=== PATIENT | female | born 1950 | race Caucasian/White ===

== ENCOUNTER 2020-02-18 14:31 | Outpatient (CLI) | payer MEDICARE, OTHER, SELFPAY ==
[2020-02-18 15:07] LABS: Alanine Aminotransferase 18 U/L (4-35); Aspartate Amino Transferase 25 U/L (14-36)
== END 2020-02-18 14:32 | disposition home or self-care (01) ==
PROVIDERS: Visit Provider Podiatrist Foot & Ankle Surgery
DX: B35.1 Tinea unguium (principal)
CPT/HCPCS: 36415; 84450; 84460

== ENCOUNTER 2020-05-20 09:34 | Outpatient (CLI) | payer MEDICARE, OTHER, SELFPAY ==
[2020-05-20 10:33] LABS: Alanine Aminotransferase 16 U/L (4-35); Aspartate Amino Transferase 28 U/L (14-36)
== END 2020-05-20 09:35 | disposition home or self-care (01) ==
LOC: ANHLAB 09:38
PROVIDERS: Visit Provider Podiatrist Foot & Ankle Surgery
DX: B35.1 Tinea unguium (principal)
CPT/HCPCS: 36415; 84450; 84460

== ENCOUNTER 2020-12-27 07:50 | Inpatient (IN) | payer MEDICARE, OTHER, SELFPAY ==
[2020-12-27] VITALS (10 sets, daily range): BP systolic 109–145; BP diastolic 58–77; PULSE 63–82; RESP 17–19; TEMP 36.3–36.6; O2SAT 98–100; BMI 25.6; BMI 25.9
[2020-12-27 08:11] LABS: Basophils Absolute Auto 0.1 K/mm3 (0.0-0.1); Basophils Percent Auto 0.6 % (0.2-1.2); Eosinophils Absolute Auto 0.3 K/mm3 (0-0.3); Eosinophils Percent Auto 2.8 % (0-4.4); Immature Granulocyte Absolute 0.05 K/mm3 (0.00-0.031); Immature Granulocyte Percent A 0.5 % (0-0.5); Lymphocytes Absolute Auto 2.77 K/mm3 (0.9-3.2); Lymphocytes Percent Auto 26.3 % (18.3-44.2); Mean Corpuscular HGB Conc 31.6 g/dl (32-36); Mean Corpuscular Hemoglobin 29.6 pg (26-34); Mean Corpuscular Volume 93.6 fl (80-100); Mean Platelet Volume 9.4 fl (7.4-10.4); Monocytes Absolute Auto 0.8 K/mm3 (0.1-0.6); Monocytes Percent Auto 7.9 % (2.6-8.5); Neutrophils Absolute Auto 6.5 K/mm3 (1.3-6.7); Neutrophils Percent Auto 61.9 % (45.5-73.1); Platelet Count Result 390 k/mm3 (150-375); Red Blood Count 4.06 M/mm3 (4.2-5.4); Red Cell Distribution Width 12.5 % (11.5-14.5); White Blood Count 10.6 K/mm3 (4.5-10.0)
--- NOTE | 2020-12-27 08:30 | ED.GIBLEED ---
HPI - GI Bleed General Chief complaint: GI Bleed Stated complaint: gi bleed Time Seen by Provider: 12/27/20 08:06 Source: patient and RN notes reviewed Mode of arrival: ambulatory Limitations: no limitations History of Present Illness HPI Narrative: Patient drove herself to the emergency room, complaining of fresh red bright blood per rectum over the last 24 hours, patient had at least 20 bowel movements since yesterday morning. No history of GI bleed before. Currently patient denying any symptom except abdominal bloating and urge to go to the bathroom. History of hypertension, hyperlipidemia, hysterectomy, currently patient on baby aspirin once a day. Patient does not smoke or drink or uses drugs. Patient is fully vaccinated for COVID-19. Patient is full code` Related Data Allergies Allergy/AdvReac Type Severity Reaction Status Date / Time No Known Allergies Allergy Unverified 12/27/20 07:58 Review of Systems Review of Systems: CONSTITUTIONAL: Denies fever, chills, or sweats. EYES: Denies visual changes, redness, or discharge. ENT: Denies rhinorrhea, congestion, sore throat, or otalgia. CARDIOVASCULAR: Denies chest pain, palpitations, or edema. RESPIRATORY: Denies cough or dyspnea. GASTROINTESTINAL: Denies abdominal pain, nausea, vomiting, or diarrhea. GENITOURINARY: Denies dysuria or hematuria. SKIN: Denies rash or itching. MUSCULOSKELETAL: Denies back pain, joint pain, or myalgia. NEUROLOGIC: Denies headache, numbness, or weakness. PSYCHIATRIC: Denies anxiety or depression. Exam Narrative: General appearance: Well-developed, well-nourished Skin: Normal color Head: Normocephalic, nontraumatic Eyes: Clear conjunctiva ENT: Oropharynx normal, ears normal, nose normal Neck: Supple, nontender Chest and respiratory: Airway patent, no respiratory distress, no accessory muscle use Heart: Regular rate/rhythm Abdomen: Soft, nontender, no organomegaly, quiet bowel sounds, rectal exam showed dark red blood, guaiac positive, no stool in the rectal pouch. No hemorrhoids, no anal pain Vascular: Normal peripheral pulses, normal capillary refill. Musculoskeletal: Normal range of motion, nontender back Neurologic: Alert and oriented ?3, [employer] is normal as tested, no gross motor deficit Course Course Emergency Course: Stable Consultations Consultation #1: DR DURAN Date: 12/27/20 Time: 09:27 Vital Signs Vital signs: Vital Signs Temperature 36.3 C L 12/27/20 07:56 Pulse Rate 82 12/27/20 07:56 Respiratory Rate 18 12/27/20 07:56 Blood Pressure 145/77 H 12/27/20 07:56 Pulse Oximetry 100 12/27/20 07:56 Temperature 36.3 C L 12/27/20 07:56 Pulse Rate 69 12/27/20 08:37 Respiratory Rate 19 12/27/20 08:37 Blood Pressure 118/58 L 12/27/20 08:37 Pulse Oximetry 99 12/27/20 08:37 MDM - GI Bleed MDM Narrative Medical decision making narrative: GI bleed is my concern. Labs, type and screen, coag, IV fluid, IV Protonix ordered. Differential Diagnosis Differential diagnosis: Likely Upper gastrointestinal hemorrhage and Lower gastrointestinal hemorrhage Lab Data Result diagrams: 12/27/20 08:02 12/27/20 08:02 Labs: Lab Results 12/27/20 12/27/20 12/27/20 Range/Units 08:02 08:02 08:02 WBC 10.6 H (4.5-10.0) K/mm3 RBC 4.06 L (4.2-5.4) M/mm3 Hgb 12.0 (12.0-15.0) g/dL Hct 38.0 (37.0-47.0) % MCV 93.6 (80-100) fl MCH 29.6 (26-34) pg MCHC 31.6 L (32-36) g/dl RDW 12.5 (11.5-14.5) % Plt Count 390 H (150-375) k/mm3 MPV 9.4 (7.4-10.4) fl Immature Gran % (Auto) 0.5 (0-0.5) % Neut % (Auto) 61.9 (45.5-73.1) % Lymph % (Auto) 26.3 (18.3-44.2) %
[2020-12-27 08:37] LABS: Alanine Aminotransferase 17 U/L (4-35); Albumin Level 4.5 g/dL (3.5-5.1); Alkaline Phosphatase 69 U/L (38-126); Anion Gap 9 mmol/L (8-16); Aspartate Amino Transferase 27 U/L (14-36); Bilirubin,Total 0.8 mg/dL (0.2-1.3); Blood Urea Nitrogen 22 mg/dL (7-17); Calcium 9.7 mg/dL (8.4-10.2); Carbon Dioxide 25 mmol/L (22-30); Chloride 101 mmol/L (98-107); Estimated CRCL calculation 52 ml/min; Estimated Glomerular Filt Rate > 60; Glucose 106 mg/dL (65-110); Potassium 4.2 mmol/L (3.4-5.0); Sodium 135 mmol/L (137-145)
[2020-12-27] MEDS: PANTOPRAZOLE SODIUM IV 40 MG VIAL IV PUSH ×2 (08:37→20:27)
--- NOTE | 2020-12-27 09:08 | PC.NURSE ---
RN assisted ERP with rectal exam.
[2020-12-27 09:15] LABS: INR 0.9; Partial Thromboplastin Time 30.2 SECONDS (22.3-36.8); Prothrombin Time 12.5 Seconds (11.1-14.7)
[2020-12-27] MEDS: SODIUM CHLORIDE 0.9% IV 1,000 ML 999 ML IV CONT (09:34)
[2020-12-27 10:07] LABS: Hematocrit 31.1 % (37.0-47.0); Hemoglobin 9.8 g/dL (12.0-15.0)
--- NOTE | 2020-12-27 12:55 | PC.NURSE ---
This patient, Caitlin Sadler, was admitted to [facility] Surg Room 330-01. Patient/family oriented to hospital policies and general routines including ID bracelet, bed and alarms, visiting hours, pain management, procedures, bathroom and other care routines, personal items, smoking policy, room service/diet, and visiting hours. Information on how to activate the Rapid Response Team has been discussed. Patient/Family are encouraged to report perceived risks to care and to ask questions if they do not understand what they are told or what they should do.
--- NOTE | 2020-12-27 12:57 | WPDGICN ---
Assessment and Plan Assessment and plan (1) GI bleed: Code(s): K92.2 - Gastrointestinal hemorrhage, unspecified Status: Acute Assessment and Plan: Patient with GI bleeding appears to been active for the last 24 hours period brightness of the bloods makes lower GI bleeding more suspicious than upper GI bleeding diverticular bleeding is certainly high on the list of differential diagnosis although ulcers and other bleeding cannot be excluded. Plan is to monitor hemoglobin transfuse as necessary will begin to prep her for colonoscopy in anticipate performing this in the morning. We will cover her with IV Protonix in the interim. Clear liquid diet is advised during the interval of preparation. GI Consult Note Consult date/time: 12/27/20 12:57 HPI: Caitlin Sadler is a 70 year old female I am asked to see in consult by emergency room. Patient in usual state of health until Sunday when she began to get mid abdominal burning. She awoke Sunday morning and passed a large amount of reddish blood. She continued to have episodes of relatively bright red blood throughout the day period and evening. Today on Sunday she presented to the emergency room. Patient denies any fever. She states she feels somewhat gassy. She continues to have bowel movements every several hours. She has never had bleeding like this before. She denies any recent travel. She has had no recent change in medications. Family history is noncontributory. She states her bowel habits typically are irregular with diarrhea alternating with constipation. She reports that her is in hospice care. She does have a history of back pain for which she takes Celebrex. Review of Systems Review of Systems: All systems reviewed & are unremarkable except as noted in HPI and below Meds Home Medications and Allergies Allergies Allergy/AdvReac Type Severity Reaction Status Date / Time No Known Allergies Allergy Unverified 12/27/20 07:58 Vital Signs Vital Signs - 24 hr 12/27/20 07:56 12/27/20 08:37 12/27/20 09:34 Temperature 97.3 F L Pulse Rate 82 69 67 Respiratory Rate 18 19 18 Blood Pressure 145/77 H 118/58 L 109/67 Pulse Oximetry 100 99 100 12/27/20 10:57 12/27/20 11:55 Temperature 97.6 F Pulse Rate 69 64 Respiratory Rate 17 18 Blood Pressure 134/67 124/66 Pulse Oximetry 100 100 Exam Narrative: Physical exam reveals patient be alert. Vital signs stable. HEENT exam is unremarkable. Patient is anicteric. Lungs are clear to auscultation and percussion heart is without murmur or extra sounds. Abdominal exam bowel sounds are present soft nontender with no organomegaly. Digital external rectal exam is normal. Results Labs CBC & Chem 7: 12/27/20 09:59 12/27/20 08:02 Labs: Short CBC 12/27/20 12/27/20 Range/Units 08:02 09:59 WBC 10.6 H (4.5-10.0) K/mm3 Hgb 12.0 9.8 L (12.0-15.0) g/dL Hct 38.0 31.1 L (37.0-47.0) % Plt Count 390 H (150-375) k/mm3 BMP 12/27/20 08:02 Sodium 135 L Potassium 4.2 Chloride 101 Carbon Dioxide 25 BUN 22 H Creatinine 0.80 Glucose 106 Calcium 9.7 Liver Function 12/27/20 Range/Units 08:02 Total Bilirubin 0.8 (0.2-1.3) mg/dL AST 27 (14-36) U/L ALT 17 (4-35) U/L Alkaline Phosphatase 69 (38-126) U/L Albumin 4.5 (3.5-5.1) g/dL
[2020-12-27] MEDS: SODIUM CHLORIDE 0.45% 1,000 ML 100 ML IV CONT (13:25)
--- NOTE | 2020-12-27 13:48 | PM.IMHP ---
H&P: HPI History of Present Illness Date/Time: 12/27/20 13:48 this is a 70-year-old female patient who has a past medical history of diverticulosis and polyps. Her last colonoscopy was approximately 2 years ago in [place] and the records are not available in our system. The patient stated that she has never had a GI bleed in the past. However the patient has been taking aspirin and Celebrex. The patient presented to the emergency room after driving herself here with complaints of bright red rectal bleeding for the past 24 hours. The patient has had at least 20 bowel movements since yesterday. The patient complained of some abdominal bloating and urged to go to the restroom. The patient does not drink any alcohol and has been fully vaccinated for the COVID-19. The patient has no complaints of abdominal discomfort. GI has been consulted and has already seen the patient. Patient was placed on a clear liquid diet and will be prepped for colonoscopy for tomorrow. The patient's hemoglobin was initially 12 and is now down to 9.8. Hematocrits was initially 38 and is 31.1. However IV fluids have been started since her initial H&H. Patient has no signs and symptoms of any dizziness and her vital sign blood pressure 124/66 and heart rate in the 60s. The patient was started on IV Protonix and IV fluids. The patient is being admitted for observation status on the date of service of 12/27/2020. Chief Complaint: Bloody stool Review of Systems Review of Systems: All systems reviewed & are unremarkable except as noted in HPI and below Constitutional: Constitutional: Reports as per HPI and Reports no additional constitutional complaints Eyes: Eyes: Reports as per HPI and Reports no additional eye complaints ENT: Reports system reviewed and no additional complaints, except as documented and Reports Normal hearing present Cardiovascular: Cardiovascular: Reports no additional cardiovascular complaints Respiratory: Respiratory: Reports no additional respiratory complaints and Reports no additional respiratory complaints Gastrointestinal: Gastrointestinal: Reports as per HPI and Reports no additional gastrointestinal complaints Musculoskeletal: Musculoskeletal: Reports no additional musculoskeletal complaints Integumentary/Breasts: Skin/Breast: Reports system reviewed and no additional complaints, except as docu and Reports as per HPI Neurologic: Reports system reviewed and no additional complaints, except as documented, Reports as per HPI and Reports Normal hearing present Psychiatric: Psychiatric: Reports no additional psychiatric complaints and Reports as per HPI Endocrine: Endocrine: Reports no additional endocrine complaints Hematologic/Lymphatic: Hematologic/Lymphatic: Reports no additional hematologic/lymphatic complaints Allergic/Immunologic: Allergic/Immunologic: Reports no additional allergic/immunologic complaints [facility] Past Medical History Medical History (Updated 12/27/20 @ 14:01 by Capri Glasgow NP) Diverticulosis Hyperlipidemia Hypertension Normal colonoscopy 2018 Surgical History Surgical History (Updated 12/27/20 @ 14:01 by Capri Glasgow NP) H/O dilation and curettage X4 H/O dilation of urethra 1971 H/O rectal polypectomy H/O: hysterectomy 1990 History of appendectomy 1966 History of bilateral carpal tunnel release 1980s History of kidney surgery Attachment offloading kidney 2000 History of tonsillectomy and adenoidectomy 195 History of total bilateral knee replacement Hx of cervical spinal arthrodesis Screws and rods with cadaver fusion C4 through 7, C4 through 5, C5 through 6, C6 through 7 05/23/2007 Status post trigger finger release 07/05/2059 Family History Family History (Updated 12/27/20 @ 14:07 by Capri Glasgow NP) Father Acute myocardial infarction Mother COPD (chronic obstructive pulmonary disease) Heart disease Social History Social History (Reviewed 12/27/20 @ 0
[2020-12-27] MEDS: PEG (High)/E-LYTE SOLN 4,000 ML BTL 4000 ML PO (14:57)
[2020-12-27 17:05] LABS: Hematocrit 30.8 % (37.0-47.0); Hemoglobin 9.3 g/dL (12.0-15.0)
[2020-12-27 22:06] LABS: Hematocrit 27.2 % (37.0-47.0); Hemoglobin 8.5 g/dL (12.0-15.0)
[2020-12-28] VITALS (13 sets, daily range): BP systolic 79–140; BP diastolic 43–80; PULSE 61–90; RESP 16–24; TEMP 35.9–36.8; O2SAT 95–100
[2020-12-28] MEDS: SODIUM CHLORIDE 0.45% 1,000 ML 100 ML IV CONT (00:05)
[2020-12-28] MEDS: ONDANSETRON INJ 4 MG/2 ML VIAL IV PUSH (06:56)
[2020-12-28 06:58] LABS: Basophils Absolute Auto 0.1 K/mm3 (0.0-0.1); Basophils Percent Auto 0.6 % (0.2-1.2); Eosinophils Absolute Auto 0.2 K/mm3 (0-0.3); Hematocrit 26.1 % (37.0-47.0); Hemoglobin 8.1 g/dL (12.0-15.0); Immature Granulocyte Absolute 0.03 K/mm3 (0.00-0.031); Immature Granulocyte Percent A 0.4 % (0-0.5); Lymphocytes Absolute Auto 2.25 K/mm3 (0.9-3.2); Lymphocytes Percent Auto 27.8 % (18.3-44.2); Mean Corpuscular Hemoglobin 29.8 pg (26-34); Mean Platelet Volume 9.4 fl (7.4-10.4); Monocytes Absolute Auto 0.6 K/mm3 (0.1-0.6); Monocytes Percent Auto 7.5 % (2.6-8.5); Neutrophils Percent Auto 61.7 % (45.5-73.1); Platelet Count Result 264 k/mm3 (150-375); Red Blood Count 2.72 M/mm3 (4.2-5.4); Red Cell Distribution Width 12.7 % (11.5-14.5); White Blood Count 8.1 K/mm3 (4.5-10.0)
[2020-12-28 07:15] LABS: Alanine Aminotransferase 14 U/L (4-35); Albumin Level 3.3 g/dL (3.5-5.1); Alkaline Phosphatase 54 U/L (38-126); Anion Gap 7 mmol/L (8-16); Aspartate Amino Transferase 21 U/L (14-36); Bilirubin,Total 0.4 mg/dL (0.2-1.3); Blood Urea Nitrogen 13 mg/dL (7-17); Calcium 8.5 mg/dL (8.4-10.2); Carbon Dioxide 25 mmol/L (22-30); Chloride 104 mmol/L (98-107); Estimated CRCL calculation 67 ml/min; Estimated Glomerular Filt Rate > 60; Glucose 97 mg/dL (65-110); Lipase 36 U/L (23-300); Potassium 3.7 mmol/L (3.4-5.0); Sodium 136 mmol/L (137-145)
[2020-12-28 07:28] LABS: Lactic Acid Reflex 1.2 mmol/L (0.7-2.1)
[2020-12-28] MEDS: ATORVASTATIN 20 MG TABLET PO (09:29)
[2020-12-28] MEDS: MULTIVITS W-FE,MIN CHEWABLE TABLET 1 TABLET PO (09:29)
[2020-12-28] MEDS: METOPROLOL SUCCINATE EXT REL 50 MG TABCR PO (09:29)
[2020-12-28] MEDS: CHOLECALCIFEROL 1,000 UNITS TABLET 1000 UNITS PO (09:29)
[2020-12-28] MEDS: PANTOPRAZOLE SODIUM IV 40 MG VIAL IV PUSH ×2 (09:30→20:03)
[2020-12-28] MEDS: lisinopriL 20 MG TABLET PO (09:30)
[2020-12-28] MEDS: SODIUM CHLORIDE 0.45% 1,000 ML 75 ML IV CONT (10:19)
--- NOTE | 2020-12-28 11:08 | PC.NURSE ---
to GI lab per w/c. iv saline locked
[2020-12-28] MEDS: LACTATED RINGERS 1,000 ML 150 ML IV CONT (11:33)
--- NOTE | 2020-12-28 11:54 | WPDANESEPPF ---
Anes - Initial Pre Proc Eval Procedure: Operation Date: 12/28/20 13:00 Proposed Procedures p Colonoscopy - Jluis Delgado MD s Possible Esophagogastroduodenoscopy - Jluis Delgado MD Date/Time: 12/28/20 11:54 Surgeon: Danielle Preciado PA-C Pre Op Diagnosis: GI bleed Patient Data Age: 70 Gender: F Height: 1.68 m Weight: 73 kg Last Vital Signs Temp 96.7 F L 12/28/20 11:29 Pulse 65 12/28/20 11:29 Resp 18 12/28/20 11:29 BP 130/59 L 12/28/20 11:29 Pulse Ox 98 12/28/20 11:29 Allergies Allergy/AdvReac Type Severity Reaction Status Date / Time No Known Allergies Allergy Verified 12/28/20 11:27 Home Medications Medication Instructions Recorded Confirmed Type aspirin [Adult Aspirin] 81 mg PO DAILY 12/27/20 12/27/20 History atorvastatin 20 mg PO DAILY 12/27/20 12/27/20 History biotin 10,000 mcg PO DAILY 12/27/20 12/27/20 History celecoxib 200 mg PO BID 12/27/20 12/27/20 History cholecalciferol (vitamin D3) 25 mcg PO DAILY 12/27/20 12/27/20 History lisinopril 20 mg PO DAILY 12/27/20 12/27/20 History metoprolol succinate 50 mg PO DAILY 12/27/20 12/27/20 History multivitamin [Multivitamin 1 tablet PO DAILY 12/27/20 12/27/20 History W/Vitamin C] omeprazole 20 mg PO DAILY 12/27/20 12/27/20 History oxybutynin chloride 15 mg PO DAILY 12/27/20 12/27/20 History terbinafine HCl See Rx Instructions .ROUTE .COMPLEX 12/27/20 12/27/20 History Laboratory Tests 12/27/20 12/27/20 12/28/20 16:52 21:37 06:42 WBC 8.1 K/mm3 K/mm3 (4.5-10.0) RBC 2.72 M/mm3 L M/mm3 (4.2-5.4) Hgb 9.3 g/dL L g/dL 8.5 g/dL L g/dL 8.1 g/dL L g/dL (12.0-15.0) (12.0-15.0) (12.0-15.0) Hct 30.8 % L % 27.2 % L % 26.1 % L % (37.0-47.0) (37.0-47.0) (37.0-47.0) MCV 96.0 fl fl (80-100) MCH 29.8 pg pg (26-34) MCHC 31.0 g/dl L g/dl (32-36) RDW 12.7 % % (11.5-14.5) Plt Count 264 k/mm3 k/mm3 (150-375) MPV 9.4 fl fl (7.4-10.4) Immature Gran % (Auto) 0.4 % % (0-0.5) Neut % (Auto) 61.7 % % (45.5-73.1) Lymph % (Auto) 27.8 % % (18.3-44.2) Richardson % (Auto) 7.5 % % (2.6-8.5) Eos % (Auto) 2.0 % % (0-4.4) Baso % (Auto) 0.6 % % (0.2-1.2) Lymph # (Auto) 2.25 K/mm3 K/mm3 (0.9-3.2) Richardson # (Auto) 0.6 K/mm3 K/mm3 (0.1-0.6) Eos # (Auto) 0.2 K/mm3 K/mm3 (0-0.3) Baso # (Auto) 0.1 K/mm3 K/mm3 (0.0-0.1) Abs Immat Gran (auto) 0.03 K/mm3 K/mm3 (0.00-0.031) Absolute Neuts (auto) 5.0 K/mm3 K/mm3 (1.3-6.7) Absolute Nucleated RBC 0.0 K/mm3 K/mm3 (0.0-0.012) Nucleated RBC % 0.0 % % (0.0-0.2) Sodium Potassium Chloride Carbon Dioxide Anion Gap BUN Creatinine Estim Creat Clear Calc Estimated GFR Glucose Lactic Acid Calcium Magnesium Total Bilirubin AST ALT Alkaline Phosphatase Total Protein Albumin Lipase TSH (Reflex) 12/28/20 12/28/20 12/28/20 06:42 06:42 06:42 WBC RBC Hgb Hct MCV MCH MCHC RDW Plt Count MPV Immature Gran % (Auto) Neut % (Auto) Lymph % (Auto) Richardson % (Auto) Eos % (Auto) Baso % (Auto) Lymph # (Auto) Richardson # (Auto) Eos # (Auto) Baso # (Auto) Abs Immat Gran (auto) Absolute Neuts (auto) Absolute Nucleated RBC Nucleated RBC % Sodium 136 mmol/L L mmol/L (137-145) Potassium 3.7 mmol/L mmol/L (3.4-5.0)
--- NOTE | 2020-12-28 14:00 | PC.NURSE ---
Returned from GI Lab via stretcher.
[2020-12-28 15:21] LABS: Hematocrit 23.4 % (37.0-47.0); Hemoglobin 7.4 g/dL (12.0-15.0)
--- NOTE | 2020-12-28 15:30 | PM.IMPN ---
Progress Note: A&P Assessment and Plan (1) Acute GI bleeding: Code(s): K92.2 - Gastrointestinal hemorrhage, unspecified Status: Acute Assessment and Plan: Patient is 70-year-old woman with a history of diverticulosis, hypertension, dyslipidemia, who presented to the emergency room with bright red blood in her stool for the last 24 hours. She reports having about 20 bowel movements in the last 24 hours prior to arrival. Initial vitals showed stable blood pressure to 145/77, heart rate 82, respiratory rate 18, oxygen saturation 100% on room air, afebrile. Initial labs showed slight leukocytosis at 10,600, hemoglobin 9.8, hematocrit 31%, normal differential, normal coag panel, slight hyponatremia at 135. Slight elevation of BUN possibly from acute bleeding. Normal LFTs. Patient was admitted to the hospital with hematochezia with a consult to GI. Dr. Delgado evaluated the patient and performed and colonoscopy today which showed diverticulosis with active bleeding. Internal hemorrhoids. Will get the patient 2 units of PRBCs since her H&H has dropped almost 4 units since arrival. She is slightly symptomatic with lightheadedness while sitting in bed at this time. Repeat H&H was 7.4/23%. Will continue monitoring H&H every 6 hours. Transfuse if hemoglobin less than 7 or symptomatic. Will have to get surgery on board if the patient continues to have GI bleeding. Continue monitoring. (2) Acute blood loss anemia: Code(s): D62 - Acute posthemorrhagic anemia Status: Acute Assessment and Plan: See above under Acute GI bleeding (3) Hypertension: Code(s): I10 - Essential (primary) hypertension Status: Chronic Assessment and Plan: Patient did become hypotensive today during her colonoscopy at 79/43. She was given IV fluid hydration. Could partially be due to sedation versus acute GI bleeding. Blood pressure improved when she got up to the floor to 118/59. She is slightly symptomatic but will give 2 units of PRBCs. Will hold her lisinopril until blood pressure stabilizes. Continue metoprolol to prevent tachycardia. Continue monitoring. Make adjustments if needed and restart home meds if needed. (4) Hyperlipidemia: Code(s): E78.5 - Hyperlipidemia, unspecified Status: Chronic Assessment and Plan: Continue home medications. Time Spent With Patient Time with patient: 25 - 35 minutes Subjective Date/time seen: 12/28/20 15:30 Interval history: Date of service 12/28/2020: Patient reports having slight lightheadedness but otherwise feeling well. During her colonoscopy prep last evening she continued to have bright red blood in her stool. She denies any chest pain, shortness of breath, cough, fever, chills, nausea, vomiting, abdominal pain, leg swelling, calf pain, dizziness or syncope, or any other symptoms at this time. Review of Systems Review of Systems: All systems reviewed & are unremarkable except as noted in HPI and below Exam Narrative: General: 70-year-old woman sitting up in bed with the tech at bedside checking her vitals. Appears comfortable. In no acute distress. Skin: No jaundice or cyanosis. Good skin turgor. Neck: Full range of motion. Supple. Respiratory: Lungs are clear to auscultation bilaterally. No bony chest wall tenderness. Cardiovascular: The heart has a regular rate and rhythm without murmur. Lower extremities: No lower extremity edema. Distal pulses are easily palpated. No calf tenderness to palpation. Gastrointestinal: The abdomen is soft, nontender and nondistended with active bowel sounds. Psychiatric: Lucid and oriented. Memory intact. Neurologic: No focal deficits. Speech is clear. No facial drooping. Objective Data Vital Signs Vi
[2020-12-28] MEDS: SODIUM CHLORIDE 0.9% IV 250 ML 30 ML IV CONT (17:56)
[2020-12-29] VITALS (8 sets, daily range): BP systolic 104–124; BP diastolic 41–77; PULSE 58–64; RESP 14–18; TEMP 36.1–36.9; O2SAT 98–100
[2020-12-29 01:04] LABS: Hematocrit 26.1 % (37.0-47.0); Hemoglobin 8.2 g/dL (12.0-15.0)
[2020-12-29] MEDS: TUBING, BLOOD PLUM PUMP TUBING 1 EACH XX (01:05)
[2020-12-29] MEDS: ACETAMINOPHEN 500 MG TABLET 1000 MG PO ×2 (01:12→20:30)
[2020-12-29] MEDS: SODIUM CHLORIDE 0.9% IV 1,000 ML 60 ML (01:41)
[2020-12-29 06:39] LABS: Hematocrit 30.2 % (37.0-47.0); Hemoglobin 9.7 g/dL (12.0-15.0); Mean Corpuscular HGB Conc 32.1 g/dl (32-36); Mean Corpuscular Volume 96.5 fl (80-100); Mean Platelet Volume 9.6 fl (7.4-10.4); Platelet Count Result 203 k/mm3 (150-375); Red Blood Count 3.13 M/mm3 (4.2-5.4); Red Cell Distribution Width 13.3 % (11.5-14.5); White Blood Count 7.6 K/mm3 (4.5-10.0)
[2020-12-29 07:05] LABS: Anion Gap 8 mmol/L (8-16); Blood Urea Nitrogen 12 mg/dL (7-17); Calcium 8.5 mg/dL (8.4-10.2); Carbon Dioxide 26 mmol/L (22-30); Chloride 105 mmol/L (98-107); Estimated CRCL calculation 59 ml/min; Estimated Glomerular Filt Rate > 60; Glucose 89 mg/dL (65-110); Potassium 4.4 mmol/L (3.4-5.0); Sodium 139 mmol/L (137-145)
--- NOTE | 2020-12-29 08:18 | WPDGIPROGNO ---
Progress Note: A&P Assessment and Plan (1) Diverticulosis: Code(s): K57.90 - Diverticulosis of intestine, part unspecified, without perforation or abscess without bleeding Status: Chronic Assessment and Plan: Patient has diverticulosis. This appears to be etiology of recent bleeding. Plan is for advancing diet ultimately high-fiber diet advised. (2) GI bleed: Code(s): K92.2 - Gastrointestinal hemorrhage, unspecified Status: Acute Assessment and Plan: Bleeding appears to be subsiding. Hemoglobin 9.7 this morning after transfusion. Plan to allow diet. Continue monitor hemoglobin. Discharge after we are certain it is stable. Bleeding appears to have subsided during the evening. Subjective Date/time seen: 12/29/20 08:18 Patient feels much better this morning. Less frequent stools throughout the night stand. Passing old blood. Review of Systems Review of Systems: All systems reviewed & are unremarkable except as noted in HPI and below Exam Narrative: Physical exam patient is alert comfortable at rest. Vital signs are stable. HEENT exam unremarkable. Patient anicteric. Lungs are clear. Heart without murmur. Abdomen bowel sounds present soft nontender. Objective Data Vital Signs Vital Signs: Vital Signs - 24 hr 12/28/20 09:29 12/28/20 11:29 12/28/20 13:08 Temperature 96.7 F L Pulse Rate 76 65 64 Respiratory Rate 18 19 Blood Pressure 130/59 L 79/43 L Pulse Oximetry 98 99 12/28/20 13:18 12/28/20 13:28 12/28/20 14:00 Temperature 98.0 F Pulse Rate 66 69 63 Respiratory Rate 24 H 16 20 Blood Pressure 89/44 L 111/49 L 118/56 L Pulse Oximetry 100 100 100 12/28/20 18:20 12/28/20 18:35 12/28/20 22:00 Temperature 97.3 F L 97 F L 97.1 F L Pulse Rate 72 65 64 Respiratory Rate 18 18 18 Blood Pressure 128/67 110/80 118/53 L Pulse Oximetry 100 100 100 12/29/20 03:00 12/29/20 05:42 Temperature 98.4 F 97.1 F L Pulse Rate 62 58 L Respiratory Rate 14 18 Blood Pressure 112/72 104/50 L Pulse Oximetry 100 100 Intake/Output Intake/Output: Intake & Output 08/2912/27/20 12/28/20 12/29/20 23:59 23:59 23:59 23:59 Intake Total 2240 2864 1224 Output Total 600 100 Balance 2240 2264 1124 Meds/Results Medications: Active Medications Generic Name Dose Route Start Last Admin Trade Name Booneq PRN Reason Stop Dose Admin Acetaminophen 1,000 mg 12/29/20 00:36 12/29/20 01:12 Acetaminophen 500 Mg Tablet PO 1,000 mg Q6H PRN Administration Mild Pain (1-3) or Fever Atorvastatin Calcium 20 mg 12/28/20 09:00 12/28/20 09:29 Atorvastatin 20 Mg Tablet PO 20 mg DAILY HAILEY Administration Lisinopril 20 mg 12/28/20 09:00 12/28/20 09:30 Lisinopril 20 Mg Tablet PO 20 mg DAILY HAILEY Administration Metoprolol Succinate 50 mg 12/28/20 09:00 12/28/20 09:29 Metoprolol Succinate Ext Rel 50 Mg Tabcr PO 50 mg DAILY HAILEY Administration Multivitamins/Minerals 1 tablet 12/28/20 09:00 12/28/20 09:29 Multivits W-Fe,Min Chewable Tablet PO 1 tablet DAILY HAILEY Administration Ondansetron HCl 4 mg 12/27/20 09:28 12/28/20 06:56 Ondansetron Inj 4 Mg/2 Ml Vial IV PUSH 4 mg Q4H PRN Administration Nausea Oxybutynin Chloride 15 mg 12/28/20 09:00 12/28/20 09:29 Oxybutynin Chloride Xl 5 Mg Tab.Er.24 PO 15 mg DAILY HAILEY Administration Pantoprazole Sodium 40 mg 12/27/20 21:00 12/28/20 20:03 Pantoprazole Sodium Iv 40 Mg Vial IV PUSH 40 mg Q12HR HAILEY Administration Vitamin D 1,000 units 12/28/20 09:00 12/28/20 09:29 Cholecalciferol 1,000 Units Tablet PO 1,000 units DAILY HAILEY Administration Labs Labs: Laboratory Results - last 24 hr 12/27/20 12/28/20 12/28/20 08:02 06:42 15:01 WBC RBC Hgb 7.4 L Hct 23.4 L MCV MCH MCHC RDW Plt Count MPV Sodium Potassium Chloride Carbon Dioxide Anion Gap BUN Creatinine Estim Creat
[2020-12-29] MEDS: CHOLECALCIFEROL 1,000 UNITS TABLET 1000 UNITS PO (08:31)
[2020-12-29] MEDS: METOPROLOL SUCCINATE EXT REL 50 MG TABCR PO (08:31)
[2020-12-29] MEDS: ATORVASTATIN 20 MG TABLET PO (08:32)
[2020-12-29] MEDS: MULTIVITS W-FE,MIN CHEWABLE TABLET 1 TABLET PO (08:32)
[2020-12-29] MEDS: PANTOPRAZOLE SODIUM IV 40 MG VIAL IV PUSH ×2 (08:33→20:28)
[2020-12-29 12:17] LABS: Hematocrit 32.7 % (37.0-47.0); Hemoglobin 10.6 g/dL (12.0-15.0)
--- NOTE | 2020-12-29 15:05 | PM.IMPN ---
Progress Note: A&P Assessment and Plan (1) Acute GI bleeding: Code(s): K92.2 - Gastrointestinal hemorrhage, unspecified Status: Acute Assessment and Plan: Patient is 70-year-old woman with a history of diverticulosis, hypertension, dyslipidemia, who presented to the emergency room with bright red blood in her stool for the last 24 hours. She reports having about 20 bowel movements in the last 24 hours prior to arrival. Initial vitals showed stable blood pressure to 145/77, heart rate 82, respiratory rate 18, oxygen saturation 100% on room air, afebrile. Initial labs showed slight leukocytosis at 10,600, hemoglobin 9.8, hematocrit 31%, normal differential, normal coag panel, slight hyponatremia at 135. Slight elevation of BUN possibly from acute bleeding. Normal LFTs. Patient was admitted to the hospital with hematochezia with a consult to GI. Dr. Delgado evaluated the patient and performed and colonoscopy on 12/28/20 which showed diverticulosis with active bleeding . Internal hemorrhoids. She did receive 2 units of PRBCs since her H&H dropped 4 units since arrival. H&H is much improved and stable today. H&H 10.6/32.7%. Will continue monitoring H&H every 6 hours. Transfuse if hemoglobin less than 7 or symptomatic. Will have to get surgery on board if the patient continues to have GI bleeding. Continue monitoring. (2) Acute blood loss anemia: Code(s): D62 - Acute posthemorrhagic anemia Status: Acute Assessment and Plan: See above under Acute GI bleeding (3) Hypertension: Code(s): I10 - Essential (primary) hypertension Status: Chronic Assessment and Plan: Patient did become hypotensive today during her colonoscopy at 79/43. She was given IV fluid hydration. Could partially be due to sedation versus acute GI bleeding. Blood pressure stable today 120/41. Will hold her lisinopril until blood pressure stabilizes. Continue metoprolol to prevent tachycardia. Continue monitoring. Make adjustments if needed and restart home meds if needed. (4) Hyperlipidemia: Code(s): E78.5 - Hyperlipidemia, unspecified Status: Chronic Assessment and Plan: Continue home medications. Time Spent With Patient Time with patient: 25 - 35 minutes Subjective Date/time seen: 12/29/20 15:05 Interval history: Date of service 12/29/2020: She reports feeling well today. She is still having some bright red blood and clots in her stools. She had an episode at midnight, 12 30, 830, and again this afternoon at 1:00 pm. Denies any for lightheadedness or dizziness with walking around. She does have intermittent abdominal cramping. Denies any fevers, chills, chest pain, shortness of breath, cough, nausea, vomiting, leg swelling, calf pain, or any other symptoms this time. Review of Systems Review of Systems: All systems reviewed & are unremarkable except as noted in HPI and below Exam Narrative: General: 70-year-old woman sitting up in bed watching TV. Appears comfortable. In no acute distress. Skin: No jaundice or cyanosis. Good skin turgor. Neck: Full range of motion. Supple. Respiratory: Lungs are clear to auscultation bilaterally. No bony chest wall tenderness. Cardiovascular: The heart has a regular rate and rhythm without murmur. Lower extremities: No lower extremity edema. Distal pulses are easily palpated. No calf tenderness to palpation. Gastrointestinal: The abdomen is soft, nontender and nondistended with active bowel sounds. Psychiatric: Lucid and oriented. Memory intact. Neurologic: No focal deficits. Speech is clear. No facial drooping. Objective Data Vital Signs Vital Signs: Vital Signs - 24 hr 12/28/20 18:20 12/28/20 18:35 12/28/20 20:05 Temperature 97.3 F
[2020-12-29 18:22] LABS: Hematocrit 32.2 % (37.0-47.0); Hemoglobin 10.4 g/dL (12.0-15.0)
[2020-12-30 01:27] LABS: Hematocrit 28.8 % (37.0-47.0); Hemoglobin 9.3 g/dL (12.0-15.0)
[2020-12-30 06:00] VITALS: BP 136/72; PULSE 64; RESP 18; TEMP 36.8; O2SAT 100
[2020-12-30 07:18] LABS: Hematocrit 31.7 % (37.0-47.0)
[2020-12-30] MEDS: CHOLECALCIFEROL 1,000 UNITS TABLET 1000 UNITS PO (08:03)
[2020-12-30] MEDS: PANTOPRAZOLE SODIUM IV 40 MG VIAL IV PUSH (08:03)
[2020-12-30] MEDS: MULTIVITS W-FE,MIN CHEWABLE TABLET 1 TABLET PO (08:03)
[2020-12-30 08:04] VITALS: PULSE 64
[2020-12-30] MEDS: METOPROLOL SUCCINATE EXT REL 50 MG TABCR PO (08:04)
[2020-12-30] MEDS: ATORVASTATIN 20 MG TABLET PO (08:04)
--- NOTE | 2020-12-30 08:47 | PM.IMPN ---
Progress Note: A&P Assessment and Plan (1) Acute GI bleeding: Code(s): K92.2 - Gastrointestinal hemorrhage, unspecified Status: Acute Assessment and Plan: Patient is 70-year-old woman with a history of diverticulosis, hypertension, dyslipidemia, who presented to the emergency room with bright red blood in her stool for the last 24 hours. She reports having about 20 bowel movements in the last 24 hours prior to arrival. Initial vitals showed stable blood pressure to 145/77, heart rate 82, respiratory rate 18, oxygen saturation 100% on room air, afebrile. Initial labs showed slight leukocytosis at 10,600, hemoglobin 9.8, hematocrit 31%, normal differential, normal coag panel, slight hyponatremia at 135. Slight elevation of BUN possibly from acute bleeding. Normal LFTs. Patient was admitted to the hospital with hematochezia with a consult to GI. Dr. Delgado evaluated the patient and performed and colonoscopy on 12/28/20 which showed diverticulosis with active bleeding . Internal hemorrhoids. She did receive 2 units of PRBCs since her H&H dropped 4 units since arrival. H&H is much improved and stable today. H&H 10.6/32.7%. Will continue monitoring H&H every 6 hours. Transfuse if hemoglobin less than 7 or symptomatic. Will have to get surgery on board if the patient continues to have GI bleeding. Continue monitoring. (2) Acute blood loss anemia: Code(s): D62 - Acute posthemorrhagic anemia Status: Acute Assessment and Plan: See above under Acute GI bleeding (3) Hypertension: Code(s): I10 - Essential (primary) hypertension Status: Chronic Assessment and Plan: Patient did become hypotensive today during her colonoscopy at 79/43. She was given IV fluid hydration. Could partially be due to sedation versus acute GI bleeding. Blood pressure stable today 120/41. Will hold her lisinopril until blood pressure stabilizes. Continue metoprolol to prevent tachycardia. Continue monitoring. Make adjustments if needed and restart home meds if needed. (4) Hyperlipidemia: Code(s): E78.5 - Hyperlipidemia, unspecified Status: Chronic Assessment and Plan: Continue home medications. Subjective Date/time seen: 12/30/20 08:47 Interval history: Date of service 12/29/2020: She reports feeling well today. She is still having some bright red blood and clots in her stools. She had an episode at midnight, 12 30, 830, and again this afternoon at 1:00 pm. Denies any for lightheadedness or dizziness with walking around. She does have intermittent abdominal cramping. Denies any fevers, chills, chest pain, shortness of breath, cough, nausea, vomiting, leg swelling, calf pain, or any other symptoms this time. Review of Systems Review of Systems: All systems reviewed & are unremarkable except as noted in HPI and below Exam Narrative: General: 70-year-old woman sitting up in bed watching TV. Appears comfortable. In no acute distress. Skin: No jaundice or cyanosis. Good skin turgor. Neck: Full range of motion. Supple. Respiratory: Lungs are clear to auscultation bilaterally. No bony chest wall tenderness. Cardiovascular: The heart has a regular rate and rhythm without murmur. Lower extremities: No lower extremity edema. Distal pulses are easily palpated. No calf tenderness to palpation. Gastrointestinal: The abdomen is soft, nontender and nondistended with active bowel sounds. Psychiatric: Lucid and oriented. Memory intact. Neurologic: No focal deficits. Speech is clear. No facial drooping. Objective Data Vital Signs Vital Signs: Vital Signs - 24 hr 12/29/20 13:20 12/29/20 22:00 12/30/20 06:00 Temperature 97.6 F 97.3 F L 98.2 F Pulse Rate 62 60 64 Respiratory Rate 18 16
--- NOTE | 2020-12-30 09:14 | WPDGIPROGNO ---
Progress Note: A&P Assessment and Plan (1) Diverticulosis: Code(s): K57.90 - Diverticulosis of intestine, part unspecified, without perforation or abscess without bleeding Status: Chronic Assessment and Plan: Patient with diverticular bleeding now resolved. Plan for high-fiber diet. Anticipate discharge today. Consider follow-up CBC in a week. (2) GI bleed: Code(s): K92.2 - Gastrointestinal hemorrhage, unspecified Status: Acute Assessment and Plan: GI bleeding resolved. Appears to have started from diverticular disease. Usually this remains stopped once it is stopped. High-fiber diet advised. Follow-up with primary care service anticipated. Subjective Date/time seen: 12/30/20 09:14 Patient feels good today. Tolerating diet. No pain reported. No bleeding reported. Anxious to go home. Review of Systems Review of Systems: All systems reviewed & are unremarkable except as noted in HPI and below Exam Narrative: On physical exam vital signs are stable. Patient is anicteric. Lungs are clear. Heart without murmur. Abdomen bowel sounds present soft and nontender. Objective Data Vital Signs Vital Signs: Vital Signs - 24 hr 12/29/20 13:20 12/29/20 22:00 12/30/20 06:00 Temperature 97.6 F 97.3 F L 98.2 F Pulse Rate 62 60 64 Respiratory Rate 18 16 18 Blood Pressure 120/41 L 114/49 L 136/72 Pulse Oximetry 100 99 100 12/30/20 08:04 Temperature Pulse Rate 64 Respiratory Rate Blood Pressure Pulse Oximetry Intake/Output Intake/Output: Intake & Output 12/27/20 12/28/20 12/29/20 12/30/20 23:59 23:59 23:59 23:59 Intake Total 2240 2864 3354 490 Output Total 600 100 600 Balance 2240 2264 3254 -110 Meds/Results Medications: Active Medications Generic Name Dose Route Start Last Admin Trade Name Freq PRN Reason Stop Dose Admin Acetaminophen 1,000 mg 12/29/20 00:36 12/29/20 20:30 Acetaminophen 500 Mg Tablet PO 1,000 mg Q6H PRN Administration Mild Pain (1-3) or Fever Atorvastatin Calcium 20 mg 12/28/20 09:00 12/30/20 08:04 Atorvastatin 20 Mg Tablet PO 20 mg DAILY HAILEY Administration Lisinopril 20 mg 12/28/20 09:00 12/28/20 09:30 Lisinopril 20 Mg Tablet PO 20 mg DAILY HAILEY Administration Metoprolol Succinate 50 mg 12/28/20 09:00 12/30/20 08:04 Metoprolol Succinate Ext Rel 50 Mg Tabcr PO 50 mg DAILY HAILEY Administration Multivitamins/Minerals 1 tablet 12/28/20 09:00 12/30/20 08:03 Multivits W-Fe,Min Chewable Tablet PO 1 tablet DAILY HAILEY Administration Ondansetron HCl 4 mg 12/27/20 09:28 12/28/20 06:56 Ondansetron Inj 4 Mg/2 Ml Vial IV PUSH 4 mg Q4H PRN Administration Nausea Oxybutynin Chloride 15 mg 12/28/20 09:00 12/30/20 08:03 Oxybutynin Chloride Xl 5 Mg Tab.Er.24 PO 15 mg DAILY HAILEY Administration Pantoprazole Sodium 40 mg 12/27/20 21:00 12/30/20 08:03 Pantoprazole Sodium Iv 40 Mg Vial IV PUSH 40 mg Q12HR HAILEY Administration Vitamin D 1,000 units 12/28/20 09:00 12/30/20 08:03 Cholecalciferol 1,000 Units Tablet PO 1,000 units DAILY HAILEY Administration Labs Labs: Laboratory Results - last 24 hr 12/29/20 12/29/20 12/30/20 12:01 18:16 00:28 Hgb 10.6 L 10.4 L 9.3 L Hct 32.7 L 32.2 L 28.8 L 12/30/20 06:50 Hgb 10.0 L Hct 31.7 L
--- NOTE | 2020-12-30 10:45 | PM.DS ---
DS: Admitting Diagnosis Admitting Diagnosis Bright red stools DS: Discharge Diagnosis Discharge Diagnosis (1) Acute GI bleeding: Code(s): K92.2 - Gastrointestinal hemorrhage, unspecified Status: Acute Assessment and Plan: Patient is 70-year-old woman with a history of diverticulosis, hypertension, dyslipidemia, who presented to the emergency room with bright red blood in her stool for the last 24 hours. She reports having about 20 bowel movements in the last 24 hours prior to arrival. Initial vitals showed stable blood pressure to 145/77, heart rate 82, respiratory rate 18, oxygen saturation 100% on room air, afebrile. Initial labs showed slight leukocytosis at 10,600, hemoglobin 9.8, hematocrit 31%, normal differential, normal coag panel, slight hyponatremia at 135. Slight elevation of BUN possibly from acute bleeding. Normal LFTs. Patient was admitted to the hospital with hematochezia with a consult to GI. Dr. Delgado evaluated the patient and performed and colonoscopy on 12/28/20 which showed diverticulosis with active bleeding . Internal hemorrhoids. She did receive 2 units of PRBCs since her H&H dropped 4 units since arrival. H&H is much improved and stable today. H&H 10.6/31%. Patient is not having any more active bleeding since noon yesterday, almost 24 hours. She is feeling well without any symptoms at this time. GI feels she is stable for discharge and her H&H is otherwise stable. Plan to follow-up primary care provider within 1 week. Return to ER warnings given. Told her to hold her aspirin for 1 week and primary care provider about restarting it. Patient retains agrees the plan all questions answered. (2) Acute blood loss anemia: Code(s): D62 - Acute posthemorrhagic anemia Status: Acute Assessment and Plan: See above under Acute GI bleeding (3) Hypertension: Code(s): I10 - Essential (primary) hypertension Status: Chronic Assessment and Plan: Patient did become hypotensive today during her colonoscopy at 79/43. She was given IV fluid hydration. Could partially be due to sedation versus acute GI bleeding. Blood pressure stable today 136/72. Continue home medications. (4) Hyperlipidemia: Code(s): E78.5 - Hyperlipidemia, unspecified Status: Chronic Assessment and Plan: Continue home medications. DS: Summary Hospital Course Reason for hospitalization: See above Hospital Course: See above Status at Discharge Cognitive/behavioral status at discharge: Stable, improved. Time Spent with Patient Time attestation: Total time spent providing and/or coordinating discharge services: 38 Time spent: Greater than 30 minutes Exam Narrative: General: 70-year-old woman in her normal clothes, walking around and looking out the window. Appears comfortable. In no acute distress. Skin: No jaundice or cyanosis. Good skin turgor. Neck: Full range of motion. Supple. Respiratory: Lungs are clear to auscultation bilaterally. No bony chest wall tenderness. Cardiovascular: The heart has a regular rate and rhythm without murmur. No carotid bruits. Lower extremities: No lower extremity edema. Distal pulses are easily palpated. No calf tenderness to palpation. Gastrointestinal: The abdomen is soft, nontender and nondistended with active bowel sounds. Psychiatric: Lucid and oriented. Memory intact. Neurologic: No focal deficits. Speech is clear. No facial drooping. DS: Data Data Completed and Pending Labs on day of discharge: Labs from last 24 hours 12/30/20 12/30/20 12/29/20 06:50 00:28 18:16 Hgb 10.0 L 9.3 L 10.4 L Hct 31.7 L 28.8 L 32.2 L 12/29/20 12:01 Hgb 10.6 L Hct 32.7 L Discharge Plan Discharge Attending
== END 2020-12-30 10:34 | disposition home or self-care (01) | DRG 378 ==
LOC: ANHED 09:14 → ANH3MEDSUR 10:53
PROVIDERS: Internal Medicine Gastroenterology; Nurse Practitioner; Physician Assistant; Admitting Provider Internal Medicine Nephrology; Emergency Provider Emergency Medicine; Visit Provider Internal Medicine
PROC: 0DJD8ZZ Inspection of Lower Intestinal Tract, Via Natural or Artificial Opening Endoscopic (ICD-10-PCS; CPT 45378; principal; 2020-12-28 13:00)
PROC: 0DJ08ZZ Inspection of Upper Intestinal Tract, Via Natural or Artificial Opening Endoscopic (ICD-10-PCS; CPT 43235; 2020-12-28 13:00)
DX: K57.31 Diverticulosis of large intestine without perforation or abscess with bleeding (principal); D62 Acute posthemorrhagic anemia; I10 Essential (primary) hypertension; E78.5 Hyperlipidemia, unspecified; Z90.710 Acquired absence of both cervix and uterus; Z79.82 Long term (current) use of aspirin; Z86.010 Personal history of colon polyps; Z98.1 Arthrodesis status; K64.8 Other hemorrhoids; I95.9 Hypotension, unspecified
CPT/HCPCS: 36415; 36430; 80048; 80053; 83605; 83690; 83735; 84443; 85014; 85018; 85025; 85027; 85610; 85730; 86850; 86900; 86901; 86920; 96361; 96374; 96375; 96376; 99285; A9270; C9113; G0378; J2405; J2704; J7030; J7050; J7120; P9016

== ENCOUNTER 2021-02-11 00:53 | Day surgery (SDC) | payer MEDICARE, OTHER, SELFPAY ==
[2021-02-02 12:11] VITALS: BMI 25.8
[2021-02-11 07:21] VITALS: BMI 25.9
--- NOTE | 2021-02-11 07:22 | WPDGICN ---
Assessment and Plan Assessment and plan (1) Gastroesophageal reflux disease: Code(s): K21.9 - Gastro-esophageal reflux disease without esophagitis Status: Acute Assessment and Plan: Patient with ongoing chronic GE reflux disease. This is currently poorly controlled with her current dose of medicines. She appears take omeprazole 20mg p.o. b.i.d. but continues to have breakthrough heartburn acid regurgitation. Patient denies bleeding or weight loss. Plan is for EGD to assess more thoroughly. She likely will require increase in her dose of medications. (2) Diverticulosis: Code(s): K57.90 - Diverticulosis of intestine, part unspecified, without perforation or abscess without bleeding Status: Chronic Assessment and Plan: Patient has no more bleeding after recent bleed from diverticulosis. Plan for patient continue high-fiber diet. GI Consult Note Consult date/time: 02/11/21 07:22 HPI: Caitlin Sadler is a 70 year old female Presents for EGD. Patient has chronic GE reflux disease. Patient has had symptoms of heartburn acid regurgitation reflux for many years. Currently takes omeprazole 20mg p.o. daily in supplements this with frequent [id number] antacids. She states that symptoms regurgitation heartburn occur on at least a daily basis. Often waking her in the middle of the night. Family history is noncontributory with no history of this. Patient denies any dysphagia. Her weight has remained stable there has been no bleeding evident. Past medical history is significant for bleeding from diverticulosis for which she was recently hospitalized. She has had no additional bleeding nor abdominal pain after discharge from the hospital. Review of Systems Review of Systems: All systems reviewed & are unremarkable except as noted in HPI and below [facility] Past Medical History Medical History Diverticulosis Hyperlipidemia Hypertension Normal colonoscopy 2019 Surgical History Surgical History H/O dilation and curettage X4 H/O dilation of urethra 1971 H/O rectal polypectomy H/O: hysterectomy 1990 History of appendectomy 1966 History of bilateral carpal tunnel release 1980s History of kidney surgery Attachment offloading kidney 2000 History of tonsillectomy and adenoidectomy 1959 History of total bilateral knee replacement Hx of cervical spinal arthrodesis Screws and rods with cadaver fusion C4 through 7, C4 through 5, C5 through 6, C6 through 7 05/23/2007 Status post trigger finger release 07/05/2059 Family History Family History (Reviewed 01/27/21 @ 13:56 by Jacqueline Rodriguez [facility]) Father Acute myocardial infarction Mother COPD (chronic obstructive pulmonary disease) Heart disease Social History Social History (Reviewed 01/27/21 @ 13:56 by Jacqueline Rodriguez [facility]) Smoking status: Never smoker Alcohol intake: current Drinks per week: 1 Substance use: never Living arrangements: with family Spiritual care concerns: No Meds Home Medications and Allergies Home Medications Medication Instructions Recorded Confirmed Type aspirin 81 mg PO DAILY 12/27/20 02/02/21 History atorvastatin 20 mg PO DAILY 12/27/20 02/02/21 History biotin 10,000 mcg PO DAILY 12/27/20 02/02/21 History celecoxib 200 mg PO BID 12/27/20 02/02/21 History cholecalciferol (vitamin D3) 25 mcg PO DAILY 12/27/20 02/02/21 History lisinopril 20 mg PO DAILY 12/27/20 02/02/21 History metoprolol succinate 50 mg PO DAILY 12/27/20 02/02/21 History oxybutynin chloride 15 mg PO DAILY 12/27/20 01/27/21 History ferrous sulfate 324 mg (65 mg 324 mg PO DAILY 01/27/21 02/02/21 History iron) tablet,delayed release omeprazole 20 mg capsule,delayed 20 mg PO BID #60 cap 01/27/21 02/02/21 Rx release ascorbic acid (vitamin C) [Vitamin 1 g PO DAILY 02/02/21
[2021-02-11] MEDS: LACTATED RINGERS 1,000 ML 150 ML IV CONT (07:39)
[2021-02-11 07:40] VITALS: BP 158/80; PULSE 66; RESP 18; TEMP 36.7; O2SAT 99
--- NOTE | 2021-02-11 07:54 | WPDANESEPPF ---
Anes - Initial Pre Proc Eval Procedure: Operation Date: 02/11/21 08:30 Proposed Procedures p Esophagogastroduodenoscopy - Jluis Delgado MD Date/Time: 02/11/21 07:54 Surgeon: Jluis Delgado MD Pre Op Diagnosis: GERD, dysphagia Patient Data Age: 70 Gender: F Height: 1.68 m Weight: 72.8 kg Last Vital Signs Temp 36.7 C 02/11/21 07:40 Pulse 66 02/11/21 07:40 Resp 18 02/11/21 07:40 BP 158/80 H 02/11/21 07:40 Pulse Ox 99 02/11/21 07:40 Allergies Allergy/AdvReac Type Severity Reaction Status Date / Time No Known Allergies Allergy Verified 02/02/21 12:14 Home Medications Medication Instructions Recorded Confirmed Type aspirin 81 mg PO DAILY 12/27/20 02/02/21 History atorvastatin 20 mg PO DAILY 12/27/20 02/02/21 History biotin 10,000 mcg PO DAILY 12/27/20 02/02/21 History celecoxib 200 mg PO BID 12/27/20 02/02/21 History cholecalciferol (vitamin D3) 25 mcg PO DAILY 12/27/20 02/02/21 History lisinopril 20 mg PO DAILY 12/27/20 02/02/21 History metoprolol succinate 50 mg PO DAILY 12/27/20 02/02/21 History oxybutynin chloride 15 mg PO DAILY 12/27/20 01/27/21 History ferrous sulfate 324 mg (65 mg 324 mg PO DAILY 01/27/21 02/02/21 History iron) tablet,delayed release omeprazole 20 mg capsule,delayed 20 mg PO BID #60 cap 01/27/21 02/02/21 Rx release ascorbic acid (vitamin C) [Vitamin 1 g PO DAILY 02/02/21 02/02/21 History C] Patient hx anesthesia problems: none Family hx anesthesia problems: none Results Review: All pre-operative results and documents have been reviewed as part of the pre-operative evaluation. [facility] Past Medical History Medical History Diverticulosis Hyperlipidemia Hypertension Normal colonoscopy 2019 Surgical History Surgical History H/O dilation and curettage X4 H/O dilation of urethra 1971 H/O rectal polypectomy H/O: hysterectomy 1990 History of appendectomy 1966 History of bilateral carpal tunnel release 1980s History of kidney surgery Attachment offloading kidney 1999 History of tonsillectomy and adenoidectomy 195 History of total bilateral knee replacement Hx of cervical spinal arthrodesis Screws and rods with cadaver fusion C4 through 7, C4 through 5, C5 through 6, C6 through 7 05/23/2007 Status post trigger finger release 07/05/2059 Family History Family History Father Acute myocardial infarction Mother COPD (chronic obstructive pulmonary disease) Heart disease Social History Social History Smoking status: Never smoker Alcohol intake: current Drinks per week: 1 Substance use: never Living arrangements: with family Spiritual care concerns: No Anes - Eval Final PreProcedure Day of Procedure 02/11/21 07:54 Patient weight: overweight Heart: regular rate and rhythm Lungs: clear to auscultation Airway: Mallampati scale class II Neurological: alert and oriented Last oral intake: >/= 8 hours ASA classification: II Emergent: no Anesthetic plan: proceed Anesthesia type and monitoring: general GIVS and standard monitoring Results Review: All pre-operative results and documents have been reviewed as part of the pre-operative evaluation. Informed Consent: The patient's anesthetic plan and its attendant risks and benefits were discussed with the patient/family/POA. Questions were solicited and answers provided to the satisfaction of the patient/family/POA.
[2021-02-11 08:37] VITALS: BP 128/57; PULSE 64; RESP 20; O2SAT 100
[2021-02-11 08:47] VITALS: BP 106/54; PULSE 58; RESP 16; O2SAT 97
[2021-02-11 08:57] VITALS: BP 122/65; PULSE 59; RESP 18; O2SAT 100
== END 2021-02-11 09:15 | disposition home or self-care (01) ==
PROVIDERS: Visit Provider Internal Medicine Gastroenterology
PROC: 0DJ08ZZ Inspection of Upper Intestinal Tract, Via Natural or Artificial Opening Endoscopic (ICD-10-PCS; CPT 43235; principal; 2021-02-11 08:30)
DX: K21.9 Gastro-esophageal reflux disease without esophagitis (principal); K57.90 Diverticulosis of intestine, part unspecified, without perforation or abscess without bleeding; I10 Essential (primary) hypertension; E78.5 Hyperlipidemia, unspecified; Z98.1 Arthrodesis status; Z79.82 Long term (current) use of aspirin
CPT/HCPCS: 43239; 87081; J2704; J7120

== ENCOUNTER 2022-01-24 06:35 | Outpatient (CLI) | payer MEDICARE, OTHER, SELFPAY ==
--- NOTE | ~2022-01-24 | CT_ITS ---
EXAMINATION: CT abdomen pelvis wo/w con DATE: 01/24/2022 07:37 INDICATION: Intermittent gross hematuria TECHNIQUE: Computed tomography (CT) of the abdomen and pelvis was performed without and with 130 cc O mnipaque 350 intravenous contrast. The dose-length product was 1228.67 mGy-cm. Automated exposure con trol and iterative reconstruction technique were employed. COMPARISON: None. FINDINGS: There is dependent atelectasis. Moderate diffuse atherosclerosis of the aorta without aneur ysm. Status post cholecystectomy with expected prominence of the bile ducts. Fatty infiltration of th e liver. The spleen, adrenal glands are unremarkable. There is mild pancreatic ductal prominence. The re are bilateral renal cysts, largest in the right kidney measuring 8.2 cm. Ureters are normal in cou rse and caliber. There is a chronic fracture deformity of the right pubic ramus. Severe lumbar spondy losis. There is atherosclerosis of the aorta without aneurysm. Nonobstructive bowel gas pattern. [place] satinder diverticulosis without evidence for diverticulitis. No significant hernia. IMPRESSION: 1. Bilateral renal cysts, largest in the right kidney measuring 8.2 cm. 2: Status post cholecystectomy with expected prominence of the bile ducts. 3: Hepatic steatosis. Reviewed, dictated and finalized at location B.
--- NOTE | ~2022-01-24 | XR_ITS ---
EXAMINATION: XR abdomen/kub 1V INDICATION: Intermittent gross hematuria TECHNIQUE: Supine views of the abdomen were obtained on 2 radiographs. COMPARISON: CT from today FINDINGS: No urolithiasis is identified. Cholecystectomy clips are noted in the right upper quadrant. There are surgical clips in the left mid abdomen. There are 15 degrees of lumbar levoscoliosis. 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 The bowel gas pattern is normal. Calcified athero sclerosis is noted. IMPRESSION: 1. No urolithiasis identified. Reviewed, dictated and finalized at location A.
[2022-01-24 07:10] LABS: Estimated Glomerular Filt Rate > 60
== END 2022-01-24 06:36 | disposition home or self-care (01) ==
PROVIDERS: PCP Family Medicine; Visit Provider Nurse Practitioner Family
DX: R31.0 Gross hematuria (principal); N28.1 Cyst of kidney, acquired; Z90.49 Acquired absence of other specified parts of digestive tract; M47.816 Spondylosis without myelopathy or radiculopathy, lumbar region; K76.0 Fatty (change of) liver, not elsewhere classified; K57.30 Diverticulosis of large intestine without perforation or abscess without bleeding; M16.0 Bilateral primary osteoarthritis of hip
CPT/HCPCS: 74018; 74178; Q9967

== ENCOUNTER → 2022-06-06 11:12 | Outpatient (CLI) | payer MEDICARE, OTHER, SELFPAY ==
--- NOTE | ~2022-06-06 | XR_ITS ---
Clinical Indication: Cough PA and lateral views of the chest: Comparison: 03/21/2007 Findings: The lungs are clear, without evidence of focal consolidation or pleural effusion. Cardiome diastinal silhouette is within normal limits. Cervicothoracic spinal fixation hardware present. Impression: Clear lungs. Reviewed, dictated and finalized at location . R COUNSELOR Impression: Clear lungs.
== END ==
PROVIDERS: PCP Physician Assistant; Visit Provider Physician Assistant
DX: R05.9 Cough, unspecified (principal)
CPT/HCPCS: 71046

== ENCOUNTER 2022-06-17 16:21 | Emergency (ER) | payer MEDICARE, OTHER, SELFPAY ==
--- NOTE | ~2022-06-17 | XR_ITS ---
EXAMINATION: XR chest 2V Exam Date/Time: 06/17/2022 16:38 LEGAL MANAGER HISTORY: cough, short of breath Comparison: 06/06/2022. RESULT: Lines, tubes, and devices: Partially visualized cervical fusion hardware. Left upper quadrant surgic al clips. Lungs and pleura: Clear. Cardiomediastinal silhouette: Stable. Other: No acute osseous or upper abdominal finding. IMPRESSION: No acute cardiopulmonary process. Reviewed, dictated and finalized at location K. L MANAGER
--- NOTE | 2022-06-17 16:28 | ED.URI ---
HPI - URI/Sore Throat General Chief Complaint: Upper Respiratory Infection Stated Complaint: cough,sob Time Seen by Provider: 06/17/22 16:35 Source: patient Mode of arrival: ambulatory Limitations: no limitations History of Present Illness HPI Narrative: Ms. Hart is a 71-year-old female patient presenting to clinic today with complaints shortness of breath and cough for several weeks. She denies any known fever or chills. Recently has had COVID and bronchitis. She saw her provider last week and a chest x-ray was performed and was negative at that time. She reports that she is unable to bring any phlegm up with coughing. MD elicited complaint: cough, nasal congestion and other (Shortness of breath) Related Data Home Medications Medication Instructions Recorded Confirmed atorvastatin 20 mg tablet 20 mg PO DAILY 12/27/20 06/17/22 biotin 10,000 mcg capsule 10,000 mcg PO DAILY 12/27/20 06/17/22 cholecalciferol (vitamin D3) 25 25 mcg PO DAILY 12/27/20 06/17/22 mcg (1,000 unit) tablet lisinopril 20 mg tablet 20 mg PO DAILY 12/27/20 06/17/22 metoprolol succinate 50 mg 50 mg PO DAILY 12/27/20 06/17/22 tablet,extended release 24 hr oxybutynin chloride 15 mg 15 mg PO DAILY 12/27/20 06/17/22 tablet,extended release 24 hr ascorbic acid (vitamin C) 1,000 mg 1 g PO DAILY 02/02/21 06/17/22 tablet (Vitamin C) celecoxib 200 mg capsule (Celebrex) 200 mg PO DAILY 06/06/22 06/17/22 niacinamide 500 mg tablet 500 mg PO DAILY 06/06/22 06/17/22 Allergies Allergy/AdvReac Type Severity Reaction Status Date / Time No Known Allergies Allergy Verified 06/17/22 16:58 Review of Systems Review of Systems: Pertinent positives per HPI. Patient denies any fever, chills, rash, headache, visual changes, dizziness, cough, shortness of breath, chest pain, palpitations, nausea, vomiting, diarrhea, constipation, abdominal pain, or any urinary issues. [facility] Past Medical History Medical History Degenerative disc disease Diverticulosis Essential tremor Gastroesophageal reflux disease History of COVID-18 May 2022 Hyperlipidemia Hypertension Overactive bladder Vitamin D deficiency Surgical History Surgical History H/O dilation and curettage X4 1979 H/O dilation of urethra 1971 H/O rectal polypectomy H/O: hysterectomy 1990 History of appendectomy 1966 History of arthroscopy of knee R 09/2001 L 11/2006 History of bilateral carpal tunnel release History of kidney surgery Attachment offloading kidney 1999 History of tonsillectomy and adenoidectomy 195 History of total bilateral knee replacement R 05/06/2012 L 03/09/2014 Hx of cervical spinal arthrodesis Screws and rods with cadaver fusion C4 through 7, C4 through 5, C5 through 6, C6 through 7 05/23/2007 Hx of cholecystectomy 2002 S/P laminectomy posterolateral cervical and thoracic arthrodesis, laminectomy inferior half of C2, all of C3, T1 07/05/2018 Status post lumbar spine surgery for decompression of spinal cord 10/20/2014 Status post trigger finger release 07/05/2015 left thumb and ring finger Family History Family History Father Acute myocardial infarction Mother COPD (chronic obstructive pulmonary disease) Heart disease Social History Social History Smoking status: Never smoker Alcohol intake: current Drinks per week: 1 Substance use: never Lack of Transportation: No Lack of Food: Never True Current Housing: I Have Housing Concerned About Future Housing: No Difficulty Paying Gas/Electric Bills: No Difficulty Paying for Meds: No Currently Unemployed: No Living arrangements: with family Occupation/Education: retired Gender identity (if verbalized by the patient): Female Se
[2022-06-17 16:34] VITALS: BP 164/79; PULSE 79; RESP 24; TEMP 37.1; O2SAT 95
[2022-06-17] MEDS: IPRATROPIUM BR 0.02% INH SOLN 0.5 MG/2.5 ML VIAL INHALATION (17:02)
[2022-06-17] MEDS: ALBUTEROL SULFATE NEB 2.5 MG/3 ML INH INHALATION (17:03)
== END 2022-06-17 17:22 | disposition home or self-care (01) ==
PROVIDERS: Emergency Provider Nurse Practitioner Family; PCP Physician Assistant
DX: J40 Bronchitis, not specified as acute or chronic (principal); J98.01 Acute bronchospasm; K21.9 Gastro-esophageal reflux disease without esophagitis; E78.5 Hyperlipidemia, unspecified; I10 Essential (primary) hypertension; E55.9 Vitamin D deficiency, unspecified; Z86.16 Personal history of COVID-19
CPT/HCPCS: 71046; 94640; 99213; G0463

== ENCOUNTER 2022-11-22 08:30 | Outpatient (CLI) | payer MEDICARE, OTHER, SELFPAY ==
[2022-11-22 09:56] LABS: Toxigenic C. Diff NEGATIVE (NEGATIVE)
[2022-11-29 20:12] LABS: Pancreatic Elastase, Stool 406 mcg/g
[2022-11-29 22:03] LABS: Calprotectin, Stool 188 mcg/g
== END 2022-11-22 08:31 | disposition home or self-care (01) ==
LOC: ANHLAB 08:31
PROVIDERS: PCP Family Medicine; Visit Provider Nurse Practitioner
DX: K92.1 Melena (principal); R19.4 Change in bowel habit; R19.7 Diarrhea, unspecified
CPT/HCPCS: 82653; 83993; 87045; 87177; 87209; 87269; 87427; 87449; 87493

== ENCOUNTER 2022-11-30 01:31 | Day surgery (SDC) | payer MEDICARE, OTHER, SELFPAY ==
[2022-11-23 13:30] VITALS: BMI 28.0
[2022-11-30 10:22] VITALS: BP 141/73; PULSE 84; RESP 18; TEMP 36.2; O2SAT 100; BMI 27.4
[2022-11-30] MEDS: LACTATED RINGERS 1,000 ML 150 ML IV CONT (10:34)
--- NOTE | 2022-11-30 10:35 | WPDANESEPPF ---
Anes - Initial Pre Proc Eval Procedure: Operation Date: 11/30/22 11:15 Proposed Procedures p Esophagogastroduodenoscopy & Colonoscopy - Jluis Delgado MD Date/Time: 11/30/22 10:35 Surgeon: Jluis Delgado MD Pre Op Diagnosis: diarrhea, GERD, chronic cough,melena Patient Data Age: 72 Gender: F Height: 1.68 m Weight: 77.2 kg Last Vital Signs Temp 97.1 F L 11/30/22 10:22 Pulse 84 11/30/22 10:22 Resp 18 11/30/22 10:22 BP 141/73 H 11/30/22 10:22 Pulse Ox 100 11/30/22 10:22 O2 Del Method Room Air 11/30/22 10:22 Allergies Allergy/AdvReac Type Severity Reaction Status Date / Time metronidazole AdvReac Nausea and Verified 11/30/22 10:21 Vomiting Home Medications Medication Instructions Recorded Confirmed Type atorvastatin 20 mg tablet 20 mg PO DAILY 12/27/20 11/30/22 History biotin 10,000 mcg capsule 10,000 mcg PO DAILY 12/27/20 11/30/22 History cholecalciferol (vitamin D3) 25 25 mcg PO DAILY 12/27/20 11/30/22 History mcg (1,000 unit) tablet lisinopril 20 mg tablet 20 mg PO DAILY 12/27/20 11/30/22 History metoprolol succinate 50 mg 50 mg PO DAILY 12/27/20 11/30/22 History tablet,extended release 24 hr oxybutynin chloride 15 mg 15 mg PO DAILY 12/27/20 11/30/22 History tablet,extended release 24 hr ascorbic acid (vitamin C) 1,000 mg 1 g PO DAILY 02/02/21 11/30/22 History tablet (Vitamin C) celecoxib 200 mg capsule (Celebrex) 200 mg PO DAILY 06/06/22 11/30/22 History niacinamide 500 mg tablet 500 mg PO DAILY 06/06/22 11/30/22 History Patient hx anesthesia problems: none Family hx anesthesia problems: none Results Review: All pre-operative results and documents have been reviewed as part of the pre-operative evaluation. [facility] Past Medical History Medical History (Updated 11/21/22 @ 15:04 by Radha Jhaveri APRN) Change in bowel habits Chronic cough Degenerative disc disease Diarrhea Diverticulosis Dysphagia Essential tremor Gastroesophageal reflux disease Hematochezia History of GI diverticular bleed Hyperlipidemia Hypertension Overactive bladder Vitamin D deficiency Surgical History Surgical History H/O dilation and curettage X4 1979 H/O dilation of urethra 1971 H/O rectal polypectomy History of ankle surgery ORIF R 05/10/2012 History of appendectomy 1966 History of arthroscopy of knee R 09/2001 L 11/2006 History of bilateral carpal tunnel release 1980s History of kidney surgery Attachment of floating kidney 1999 History of tonsillectomy and adenoidectomy 195 History of total abdominal hysterectomy and bilateral salpingo-oophorectomy History of total bilateral knee replacement R 05/06/2012 L 03/09/2014 Hx of cervical spinal arthrodesis Screws and rods with cadaver fusion C4 through 7, C4 through 5, C5 through 6, C6 through 7 05/23/2007 Hx of cholecystectomy 2001 S/P laminectomy posterolateral cervical and thoracic arthrodesis, laminectomy inferior half of C2, all of C3, T1 07/05/2018 Status post lumbar spine surgery for decompression of spinal cord 10/20/2014 Status post trigger finger release 07/05/2015 left thumb and ring finger Family History Family History Father Acute myocardial infarction Mother COPD (chronic obstructive pulmonary disease) Heart disease Social History Social History Smoking status: Never smoker Alcohol intake: never Drinks per week: 1 Substance use: never Lack of Transportation: No Lack of Food: Never True Current Housing: I Have Housing Concerned About Future Housing: No Difficulty Paying Gas/Electric Bills: No Difficulty Paying for Meds: No Currently Unemployed: No Education: Trade/Vocational Certificate Difficulty w/ Childcare or Family Care: No Living arrangements: alone Occupation/[employer]
--- NOTE | 2022-11-30 10:36 | WPDHPUPDATE1 ---
History and Physical Update Update Date/Time: 11/30/22 10:36 History and Physical has been reviewed, including an updated exam of the patient. There are NO changes in the patient's condition. Risks, benefits, and alternatives have been discussed and questions answered. Patient agrees to proceed with procedure.
[2022-11-30] MEDS: SIMETHICONE ORAL SUSPENSION 20 MG/0.3 ML 30 ML BOTTLE 0.6 ML IRRIGATION (11:12)
--- NOTE | 2022-11-30 11:19 | SUR.OPER ---
EGD ended at 1114. Colonoscopy began at 1121.
[2022-11-30 11:37] VITALS: BP 109/85; PULSE 76; RESP 20; O2SAT 98
[2022-11-30 11:47] VITALS: BP 129/73; PULSE 71; RESP 20; O2SAT 98
[2022-11-30 11:57] VITALS: BP 141/74; PULSE 66; RESP 20; O2SAT 100
== END 2022-11-30 12:13 | disposition home or self-care (01) ==
PROVIDERS: PCP Family Medicine; Visit Provider Internal Medicine Gastroenterology
PROC: 0DJ08ZZ Inspection of Upper Intestinal Tract, Via Natural or Artificial Opening Endoscopic (ICD-10-PCS; CPT 43235; principal; 2022-11-30 11:15)
DX: R19.7 Diarrhea, unspecified (principal); K57.30 Diverticulosis of large intestine without perforation or abscess without bleeding; K64.8 Other hemorrhoids; K92.1 Melena; K21.9 Gastro-esophageal reflux disease without esophagitis; R13.10 Dysphagia, unspecified; Z87.19 Personal history of other diseases of the digestive system; I10 Essential (primary) hypertension; E78.5 Hyperlipidemia, unspecified; E55.9 Vitamin D deficiency, unspecified; N32.81 Overactive bladder
CPT/HCPCS: 45380; 43239; 87081; 88305; J2001; J2704; J7120

== ENCOUNTER 2022-12-11 09:30 | Outpatient (CLI) | payer MEDICARE, OTHER, SELFPAY ==
--- NOTE | ~2022-12-11 | XR_ITS ---
MODIFIED ESOPHAGRAM HISTORY: Dysphagia. TECHNIQUE: Modified barium esophagram was performed by speech pathologist under radiologist fluorosco pic guidance. This was recorded on tape. The exam was reviewed on 12/11/2022 11:50 CDT. The DAP for this procedure was 0.52 Gycm2. Fluoroscopy time is 0.8 minutes. FINDINGS: Lateral projection of the cervical spine demonstrates normal alignment. There are extensi ve cervical spine fusion changes anteriorly and posteriorly. There is normal swallowing function with out penetration or aspiration.. IMPRESSION: 1: Normal swallowing function without penetration or aspiration. 2: Please refer to speech pathologist report for additional detail. Reviewed, dictated and finalized at location A.
--- NOTE | 2022-12-11 11:07 | REHSTMBS ---
Assessment and note entered by Autumn Jane, CLAY MOLDER Modified Barium Swallow Evaluation Feeding Type Recommended Oral Food Consistency Regular, Level 7 Liquid Consistency Thin (0) ST Clinical Summary MODIFIED BARIUM SWALLOW STUDY This patient was seen for a outpatient Modified Barium Swallow study at the request of her physician. Patient reports a history of surgery in the cervical area, 2014, and then a second surgery in 2018. Patient reports that she also has a history of gastroesophageal reflux disease (GERD) that she states can wake up with reflux in the back of her mouth. Patient indicated that she feels that either reflux or a swallowing dysfunction may be contributing to her bronchitis symptoms that she has had for approximately two years. Patient does report occasional choking on water that she feels may be contributing to aspiration which may also be contributing to the bronchitis. Today the patient was viewed in the lateral position to the level of C5/C6. She was presented with first a small amount of thin liquid contrast medium, then thin liquid per cup and also per straw, pudding mixed with semi-solid contrast medium, and then a 1x1 inch square of cracker coated with the semi-solid mixture. Patient elicited quick swallows with adequate epiglottal inversion, no penetration or aspiration, and no significant pharyngeal residue. Results indicate this patient's swallowing skills are within normal limits. She may remain on a Regular Diet with Regular Liquids. She was instructed to try head flexion with thin liquids and [id number] foods to assist with prevention of choking/aspirating while consuming food/liquid. Additionally therapist instructed the patient in the use of several GERD precautions to assist with preventing choking on reflux at night and to remain on GERD prevention medications as prescribed by her physician. She voiced understanding of all recommendations. Thank you for this referral.
== END 2022-12-11 09:31 | disposition home or self-care (01) ==
PROVIDERS: PCP Family Medicine; Visit Provider Internal Medicine Gastroenterology
DX: R13.10 Dysphagia, unspecified (principal)
CPT/HCPCS: 92611

== ENCOUNTER → 2023-02-01 08:34 | Outpatient (CLI) | payer MEDICARE, OTHER, SELFPAY ==
--- NOTE | ~2023-02-01 | CT_ITS ---
. EXAMINATION: CT sinus wo con DATE: 02/01/2023 08:48 INDICATION: Left ear pain, left hearing loss. Chronic sinusitis. TECHNIQUE: Computed tomography (CT) of the paranasal sinuses was performed without contrast. Iterativ e reconstruction technique was employed. Exam dose: 266.74 mGy-cm total exam DLP. COMPARISON: 03/21/2007 CT brain FINDINGS: Minimal rightward bowing of the nasal septum. The nasal turbinates are mildly prominent. There is intralamellar cell of both middle nasal turbinate s and mild hoang bullosa of the right middle nasal turbinate. There is mild mucoperiosteal thickening at the maxillary ostium and infundibulum bilaterally. There i s minimal mucoperiosteal thickening of the right maxillary sinus and mild mucoperiosteal thickening o f the left maxillary sinus. The paranasal sinuses are otherwise unremarkable. The right mastoid air cells are normally developed and well-aerated. The left mastoid air cells are w ell-developed. There is patchy opacification of up to approximately half of the left mastoid air cell s. There is some soft tissue thickening in the left middle ear cavity. The right middle and inner ear apparatus appear normal. IMPRESSION: Intralamellar cell of both middle nasal turbinates and mild hoang bullosa of the right middle nasal turbinate Mild mucoperiosteal thickening at the maxillary ostium and infundibulum bilaterally Minimal right and mild left maxillary mucoperiosteal thickening Left mastoid effusions Reviewed, dictated and finalized at Location A. Reviewed, dictated and finalized at location L. IMPRESSION: Intralamellar cell of both middle nasal turbinates and mild hoang bullosa of t he right middle nasal turbinate Mild mucoperiosteal thickening at the maxillary ostium and infundibulum bilater ally Minimal right and mild left maxillary mucoperiosteal thickening Left mastoid effusions
== END ==
PROVIDERS: Visit Provider Physician Assistant
DX: J32.9 Chronic sinusitis, unspecified (principal)
CPT/HCPCS: 70486

== ENCOUNTER 2023-05-14 10:01 | Outpatient (CLI) | payer MEDICARE, OTHER, SELFPAY ==
--- NOTE | ~2023-05-14 | CT_ITS ---
EXAMINATION: CT IAC/mastoids BI wo con DATE: 05/14/2023 10:16 INDICATION: Bilateral sensorineural hearing loss TECHNIQUE: Computed tomography (CT) of the temporal bones was performed without intravenous contrast. The dose-length product was 194.73 mGy-cm. COMPARISON: Sinus CT dated 02/01/2023 FINDINGS: RIGHT TEMPORAL BONE: There is a small amount of fluid versus soft tissue density in the middle ear cavity situated between the posterior margin of the tympanic membrane and the incus and stapes including a small portion of Prussak's space. The ossicles are otherwise unremarkable. The internal auditory canal, cochlea, vesti bule, semicircular canals, vestibular aqueduct, scutum, facial nerve course and external auditory can al are all normal. Moderate right mastoid effusion. The carotid canal and jugular bulb are unremarkab le. LEFT TEMPORAL BONE: Relatively symmetric small amount of fluid versus soft tissue density in the middle ear cavity situat ed along the inner margin of the tympanic membrane and along the otherwise normal appearing ossicular chain. The internal auditory canal, cochlea, vestibule, semicircular canals, vestibular aqueduct, sc utum, per sec space, course of the facial nerve and external auditory canal are all normal. Small lef t mastoid effusion. Minimal atherosclerotic calcific lesion along the carotid artery at the carotid c anal. The jugular bulb is unremarkable. IMPRESSION: 1. Relatively symmetric small amount of fluid versus soft tissue situated between the tympanic membra ne and the ossicular chains. No evident osseous erosions. 2. Small left and moderate right mastoid effusions. Reviewed, dictated and finalized at location A. E SANDBLASTER IMPRESSION: 1. Relatively symmetric small amount of fluid versus soft tissue situated betwe en the tympanic membrane and the ossicular chains. No evident osseous erosions. 2. Small left and moderate right mastoid effusions.
== END 2023-05-14 10:02 ==
LOC: MICIMG 10:02
PROVIDERS: PCP Physician Assistant; Visit Provider Otolaryngology
DX: H74.8X3 Other specified disorders of middle ear and mastoid, bilateral (principal); H90.3 Sensorineural hearing loss, bilateral
CPT/HCPCS: 70480

== ENCOUNTER 2023-08-01 11:57 | Outpatient (CLI) | payer MEDICARE, OTHER, SELFPAY ==
--- NOTE | ~2023-08-01 | US_ITS ---
EXAMINATION: US venous doppler [facility] DATE: 08/01/2023 12:48 INDICATION: Left lower limb swelling. TECHNIQUE: Grayscale ultrasound images without and with compression and Doppler ultrasound images of the left lower extremity veins were obtained. COMPARISON: Ultrasound 07/22/2015 FINDINGS: The visualized portions of left common femoral vein, profunda (deep) femoral vein, femoral vein, popl iteal vein, peroneal veins, posterior tibial veins, and greater saphenous vein outflow are patent. IMPRESSION: 1. No deep venous thrombosis. Reviewed, dictated and finalized at location B.
== END 2023-08-01 11:58 | disposition home or self-care (01) ==
LOC: ANHIMG 11:58
PROVIDERS: PCP Family Medicine; Visit Provider Physician Assistant
DX: R60.0 Localized edema (principal)
CPT/HCPCS: 93971